=== PATIENT | female | born 1965 ===

== ENCOUNTER 2025-01-07 11:08 | Outpatient (AMB) | payer OTHER, SELFPAY | END 2025-01-08 11:51 | disposition home or self-care (01) | LOC: HO.HMGAL 11:08 | PROVIDERS: PCP Internal Medicine; Visit Provider Registered Nurse Emergency | DX: J30.89 Other allergic rhinitis (principal) | CPT/HCPCS: 95117; 95165 ==

== ENCOUNTER 2025-02-20 14:24 | Outpatient (AMB) | payer OTHER, SELFPAY | END 2025-02-20 14:25 | disposition home or self-care (01) | LOC: HO.HMGAL 14:24 | PROVIDERS: PCP Internal Medicine; Visit Provider Registered Nurse Emergency | DX: J30.89 Other allergic rhinitis (principal) | CPT/HCPCS: 95117; 95165 ==

== ENCOUNTER 2025-03-25 08:16 | Outpatient (AMB) | payer OTHER, SELFPAY | END 2025-03-25 08:17 | disposition home or self-care (01) | LOC: HO.HMGAL 08:16 | PROVIDERS: PCP Internal Medicine; Visit Provider Registered Nurse Emergency | DX: J30.89 Other allergic rhinitis (principal) | CPT/HCPCS: 95117; 95165 ==

== ENCOUNTER 2025-04-29 09:10 | Outpatient (AMB) | payer OTHER, SELFPAY | END 2025-04-29 09:11 | disposition home or self-care (01) | LOC: HO.HMGAL 09:10 | PROVIDERS: PCP Internal Medicine; Visit Provider Registered Nurse Emergency | DX: J30.89 Other allergic rhinitis (principal) | CPT/HCPCS: 95117; 95165 ==